=== PATIENT | male | born 1950 | race Caucasian/White ===

== ENCOUNTER → 2021-01-31 | Outpatient (CLI) | payer MEDICARE ==
[~2021-01-31] MED LIST: ATOR40TA78 PO; BUDE10.2 NAS; CHOL10003 PO; DOXY100C2 PO; FEXO180T15 PO; FLUT1AER INH; IRBE150T9 PO
[2021-01-31 14:30] LABS: ALBUMIN 3.7 g/dL (3.4-5.0); ANION GAP 7 mmol/L (5-15); CALCIUM 9.2 mg/dL (8.5-10.1); CHLORIDE 108 mmol/L (98-107)
[2021-01-31 14:34] LABS: ALANINE AMINOTRANSFERASE 40 U/L (12-78); ALKALINE PHOSPHATASE 83 U/L (45-117); BILIRUBIN,TOTAL 0.8 mg/dL (0.2-1.0); CREATININE 1.05 mg/dL (0.7-1.3); TOTAL PROTEIN 7.2 g/dL (6.4-8.2)
== END | disposition home or self-care (01) ==
LOC: STAR 12:52
PROVIDERS: ATTEND Otolaryngology
DX: Z01.812 Encounter for preprocedural laboratory examination (principal); J32.0 Chronic maxillary sinusitis; J32.2 Chronic ethmoidal sinusitis; J32.4 Chronic pansinusitis; Z20.822 Contact with and (suspected) exposure to COVID-19
CPT/HCPCS: 36415; 80053; U0003; U0005

== ENCOUNTER → 2021-02-09 | Outpatient (CLI) | payer MEDICARE | END | disposition home or self-care (01) | LOC: STAR 09:49 | PROVIDERS: ATTEND Family Medicine | DX: Z01.818 Encounter for other preprocedural examination (principal); I45.10 Unspecified right bundle-branch block; Z20.822 Contact with and (suspected) exposure to COVID-19 | CPT/HCPCS: 93005; U0003; U0005 ==

== ENCOUNTER 2021-02-13 08:18 | Day surgery (SDC) | payer MEDICARE ==
[~2021-02-13] VITALS: Ht 172.7 cm; Wt 84.9 kg
[2021-02-13] MEDS ORDERED: BUDESONIDE NAS (08:52)
[2021-02-13 08:56] VITALS: BP 153/76
[2021-02-13] MEDS ORDERED: CHLORHEXIDINE 15 ML UDC PO ONE (09:00)
[2021-02-13] MEDS ORDERED: LACTATED RINGERS 1,000 ML IV SCH (09:00)
[2021-02-13] MEDS ORDERED: FENTANYL PF 250 MCG/5ML ONE (09:51)
[2021-02-13] MEDS ORDERED: FENTANYL PF 100 MCG/2ML IV PRN (10:00)
[2021-02-13] MEDS ORDERED: HALOPERIDOL 5 MG/ML IV PRN (10:00)
[2021-02-13] MEDS ORDERED: LABETALOL 5MG/ML, 20ML IV PRN (10:00)
[2021-02-13] MEDS ORDERED: DIPHENHYDRAMINE 50 MG/ML, 1ML IVPush PRN (10:00)
[2021-02-13] MEDS ORDERED: PROMETHAZINE 25 MG/ML, 1ML IVPush PRN (10:00)
[2021-02-13] MEDS ORDERED: MEPERIDINE/PF 25MG/0.5ML IVPush PRN (10:00)
[2021-02-13] MEDS ORDERED: ACETAMINOPHEN 325 MG TABLET PO PRN (10:00)
[2021-02-13] MEDS ORDERED: hydrALAzine 20 MG/ML, 1ML IV PRN (10:00)
[2021-02-13] MEDS ORDERED: OXYcodone 5 MG/5 ML ORAL.SOL UDC PO PRN (10:00)
[2021-02-13] MEDS ORDERED: HYDROmorphone 1 MG/ML, 1ML INJ IVPush PRN (10:00)
[2021-02-13] MEDS ORDERED: EPINEPHRINE TOPICAL SOLN 1 MG/ML, 30ML ONE (11:03)
[2021-02-13] MEDS ORDERED: BACITRACIN OINT 500U/GM, 15 GM ONE (11:03)
[2021-02-13] MEDS ORDERED: LIDOCAINE/PF 1%, 30ML ONE (11:03)
[2021-02-13] MEDS ORDERED: EPINEPHRINE 1 MG/ML, 1ML ONE (11:03)
[2021-02-13] MEDS ORDERED: FLUORESCEIN SODIUM 500 MG/5 ML ONE (11:03)
[2021-02-13] MEDS ORDERED: OXYMETAZOLINE NASAL SPRAY 0.05%,30ML ONE (11:03)
[2021-02-13] MEDS ORDERED: MIDAZOLAM 1 MG/ML, 2ML ONE (11:20)
[2021-02-13] MEDS ORDERED: EPHEDRINE 50 MG/ML, 1ML ONE (11:26)
[2021-02-13] MEDS ORDERED: DEXAMETHASONE 4 MG/ML, 1ML ONE (13:15)
[2021-02-13] MEDS ORDERED: ONDANSETRON 2MG/ML, 2ML ONE (13:15)
[2021-02-13] MEDS ORDERED: ROCURONIUM 10MG/ML,5ML ONE (13:15)
[2021-02-13] MEDS ORDERED: NEOSTIGMINE 1 MG/ML, 10ML ONE (13:15)
[2021-02-13] MEDS ORDERED: PROPOFOL 10 MG/ML, 20ML ONE (13:15)
[2021-02-13] MEDS ORDERED: GLYCOPYRROLATE 0.2MG/1ML, 5ML ONE (13:15)
[2021-02-13] MEDS ORDERED: CEFAZOLIN 1,000 MG ONE (13:15)
[2021-02-13] MEDS ORDERED: SUCCINYLCHOLINE 20 MG/ML, 10ML ONE (13:15)
== END 2021-02-13 15:25 | disposition home or self-care (01) ==
LOC: OUT 08:18
PROVIDERS: ATTEND Otolaryngology
DX: J32.0 Chronic maxillary sinusitis (principal); J32.2 Chronic ethmoidal sinusitis; J33.8 Other polyp of sinus; J34.2 Deviated nasal septum; J45.909 Unspecified asthma, uncomplicated; I10 Essential (primary) hypertension; E78.5 Hyperlipidemia, unspecified; Z79.899 Other long term (current) drug therapy; Z91.048 Other nonmedicinal substance allergy status; Z82.5 Family history of asthma and other chronic lower respiratory diseases; Z82.49 Family history of ischemic heart disease and other diseases of the circulatory system
CPT/HCPCS: 30520; 31253; 31257; 31267; 87070; 87075; 87077; 87102; 87186; 87205; 88304; J0171; J0330; J0690; J1100; J2250; J2405; J2704; J2710; J3010; J7120